=== PATIENT | female | born 1975 | race Caucasian/White ===

== ENCOUNTER 2020-11-11 19:27 | Emergency (ER) | payer SELFPAY ==
[2020-11-11 19:29] VITALS: BP 158/101; PULSE 120; RESP 18; TEMP 36.6; O2SAT 100; BMI 20.7
[2020-11-11 20:00] VITALS: BP 154/99; PULSE 112; RESP 17; O2SAT 98
--- NOTE | 2020-11-11 20:05 | [facility].EDGENADL ---
ED Disposition Clinical Impression: Crohn's colitis Qualifiers: Digestive disease complication type: without complication Qualified Code(s): K50.10 - Crohn's disease of large intestine without complications Disposition: Home, Self-Care Condition on Discharge: Good Instructions: DI for Diarrhea and Traveler's Diarrhea -- Adult, DI for Diarrhea and Traveler's Diarrhea -- Child, DI for Nausea -- Adult, DI for Nausea -- Child Additional Instructions: Continue taking Lomotil and Bentyl as prescribed. Follow a clear liquid diet over the next several days. Please call your PCP tomorrow for possible initiation of oral steroids. Immediately return if intractable nausea/vomiting, recurrent pain, abdominal distention, fever/chills, or other new concerning symptoms. Referrals: PCP,No [Primary Care Provider] - - Critical Care Critical Care Time: No Attestation: On , the high probability of a clinically significant, sudden or life threatening deterioration of the following system(s) required my full and direct attention, intervention and personal management. The time I documented below is in addition to time spent performing reported procedures but includes the following listed in this critical care notation. Medical Decision Making - Medical Records Medical records reviewed: Yes: I reviewed the patient's medical records. - George Inquiry Pt receiving controlled substance: Yes George was queried for this patient: No Reason not queried -: Emergent pt cond-no time Risks and benefits of using a controlled substance: were discussed with pt by me Vital Signs: 11/11/20 19:29 11/11/20 20:00 11/11/20 20:30 Temperature 97.9 F Temperature Source Oral Pulse Rate [Left Radial] 120 H 112 H 107 H Respiratory Rate 18 17 Blood Pressure [Right Arm] 158/101 H 154/99 H 144/82 H Blood Pressure Mean [Right Arm] 120 117 102 Blood Pressure Source [Right Arm] Automatic Cuff Automatic Cuff Automatic Cuff Blood Pressure Position [Right Arm] Supine Supine Supine 02 Sat by Pulse Oximetry 100 98 97 Oxygen Delivery Method Room Air Room Air Room Air - Lab Data Lab Results 11/11/20 19:46: Urine Color Yellow, Urine Appearance Clear, Urine pH 6.0, Ur Specific Anderson <= 1.005, Urine Protein Negative, Urine Glucose (UA) Negative, Urine Ketones Negative, Urine Blood Negative, Urine Nitrate Negative, Urine Bilirubin Negative, Urine Urobilinogen 0.2, Ur Leukocyte Esterase 1+ A, Urine WBC 5-10, Ur Squamous Epith Cells 3-5, Urine Bacteria 1+, Urine Mucus 1+ 11/11/20 19:46: Urine HCG, Qual Negative 11/11/20 20:10: WBC 6.6, RBC 4.48, Hgb 15.1, Hct 42.7, MCV 95.3, MCH 33.7 H, MCHC 35.4, RDW 13.4, Plt Count 281, MPV 7.5, Neut % (Auto) 67.1, Lymph % (Auto) 26.0, [place] % (Auto) 5.3, Eos % (Auto) 1.2, Baso % (Auto) 0.4, Neut # (Auto) 4.4, Lymph # (Auto) 1.7, [place] # (Auto) 0.4, Eos # (Auto) 0.1, Baso # (Auto) 0.0 11/11/20 20:10: Sodium 141, Potassium 4.1, Chloride 105, Carbon Dioxide 27, Anion Gap 13.1, BUN 6 L, Creatinine 0.90, Estimated Creat Clear 70, Estimated GFR 67, Est GFR ( Amer) 82, Glucose 114 H, Calcium 10.7 H, Magnesium 1.5 L, Total Bilirubin 0.4, AST 40 H, ALT 41, Alkaline Phosphatase 113, C-Reactive Protein 0.7, Total Protein 8.6 H, Albumin 5.0, Globulin 3.6 H, Albumin/Globulin Ratio 1.4, Lipase 227 Result diagrams: 11/11/20 20:10 11/11/20 20:10 Orders (Tests/Meds): ED MEDICATIONS Generic Name Dose Route Start Last Admin Trade Name Freq PRN Reason Stop Dose Admin Lactated Ringer's 1,000 mls @ 999 mls/hr 11/11/20 20:15 11/11/20 20:14 Lactated Ringer's 1000 Ml Bag IV 11/11/20 21:15 999 mls/hr .[id number] DANYELL Administration Discontinued Medications Generic Name Dose Route Start Last Admin Trade Name Freq PRN Reason Stop Dose Admin Iopamidol 75 ml 11/11/20 21:16 11/11/20 21:17 Iopamidol-370 (76%);100ml Bottle IV 11/11/20 21:17 75 ml ONCE ONE Administration Morphine Sulfate 4 mg 11/11/20 20:10 11/11/20 20:14 M
--- NOTE | 2020-11-11 20:10 | CT_ITS ---
PROCEDURE: CT ABDOMEN PELVIS W CON CLINICAL INDICATION: abd pain w/vomiting h/o crohn's COMPARISON: No exams were available for comparison TECHNIQUE: IV Contrast: 75ML Isovue 370 Oral Contrast None Axial images obtained with sagittal and coronal reformats. All CT scans at the facility use one or more dose reduction, viz: automated exposure control, ma/kV adjustment per patient size (including targeted exams where dose is matched to indication, i.e. head), or iterative reconstruction technique. FINDINGS: LOWER THORAX: No acute finding ABDOMEN & PELVIS: There has been a prior cholecystectomy with biliary ectasia. No focal liver lesion is evident. The spleen, adrenal glands, and kidneys have an unremarkable appearance. There is mild prominence of the pancreatic duct in the head of the pancreas. This is of questionable clinical significance. There is a tiny umbilical hernia containing fat. The appendix is not clearly delineated. No evidence of appendicitis. Surgical clips are present in the right lower quadrant. There are fluid filled minimally distended distal ileal loops as well as air-fluid levels within the colon which is nondistended. Minimal enhancement of the wall of the ascending and transverse colon. There is prominence of the left periuterine veins which may be seen with pelvic congestion syndrome. No acute bony findings. IMPRESSION: 1. Enterocolitis suspected. 2. Prominence of the left periuterine veins which may be seen with pelvic congestion syndrome. 3. Prior cholecystectomy with biliary ectasia and mild prominence of the pancreatic duct. MRCP may better evaluate if clinically desired. Dictated by: Jin Grey MD 11/12/2020 07:34 Jin Grey MD in [place] 11/12/2020 07:34
[2020-11-11 20:15] LABS: Microscopic, Urine URINE MICROSCOPIC (MICROSCOPIC)
[2020-11-11 20:20] LABS: Basophils % 0.4 % (0.1-2.0); Eosinophils # 0.1 K/mm3 (0.0-0.4); Eosinophils % 1.2 % (0.1-12.0); Hematocrit 42.7 % (37.0-47.0); Hemoglobin 15.1 g/dL (12.2-16.2); Lymphocytes # 1.7 K/mm3 (0.7-4.5); Mean Corpuscular HGB Conc 35.4 g/dL (31.8-35.4); Mean Corpuscular Hemoglobin 33.7 pg (27.0-31.2); Mean Corpuscular Volume 95.3 fl (81-99); Mean Platelet Volume 7.5 fl (7.4-10.4); Monocytes # 0.4 K/mm3 (0.1-1.0); Monocytes % 5.3 % (1.7-9.3); Neutrophils # 4.4 K/mm3 (1.8-7.8); Neutrophils % 67.1 % (37.0-80.0); Platelet Count 281 K/mm3 (142-424); Red Blood Count 4.48 M/mm3 (4.20-5.40); Red Cell Distribution Width 13.4 % (11.5-17.5); White Blood Count 6.6 K/mm3 (4.8-10.8)
[2020-11-11 20:23] LABS: Appearance,Urine CLEAR (Clear); Bilirubin,Urine Negative (Negative); Blood, Urine Negative (Negative); Color,Urine YELLOW (Yellow); Glucose,Urine (UA) Negative (Negative); Ketones,Urine Negative (Negative); Leukocyte Esterase,Urine 1+ (Negative); Nitrate,Urine Negative (Negative); Protein,Urine Negative (Negative); Specific Gravity, Urine <= 1.005 (1.005-1.030); Urobilinogen,Urine 0.2 EU/dl (0.2)
[2020-11-11 20:25] LABS: Chloride 105 mmol/L (98-107); Sodium 141 mmol/L (136-145)
[2020-11-11 20:26] LABS: Potassium 4.1 mmoL/L (3.5-5.1)
[2020-11-11 20:27] LABS: Urine Pregnancy, HCG Qual. Negative (Negative)
[2020-11-11 20:28] LABS: Alanine Aminotransferase 41 U/L (12-78); Albumin/Globulin Ratio 1.4 (1.1-1.8); Alkaline Phosphatase 113 U/L (38-126); Anion Gap 13.1 mEq/L (5-15); Aspartate Amino Transferase 40 U/L (14-36); Bilirubin,Total 0.4 mg/dl (0.2-1.3); Blood Urea Nitrogen 6 mg/dl (7-17); Calcium 10.7 mg/dl (8.4-10.2); Carbon Dioxide 27 mmol/L (22.0-30.0); Creatinine Clearance Estimated 70 mL/min (50-200); Estimated Glomerular Filt Rate 67 ml/min (>60); GFR (African American) 82 ML/MIN (>60); Globulin 3.6 g/dL (1.3-3.2); Glucose 114 mg/dl (74-100); Lipase 227 U/L (23-300); Total Protein,Serum 8.6 g/dl (6.3-8.2)
[2020-11-11 20:29] LABS: Magnesium 1.5 mg/dl (1.6-2.3)
[2020-11-11 20:30] VITALS: BP 144/82; PULSE 107; O2SAT 97
[2020-11-11 20:35] LABS: C-Reactive Protein 0.7 mg/L (0-4)
[2020-11-11 20:35] LABS: Bacteria,Urine 1+ /lpf; Mucus,Urine 1+ /lpf
[2020-11-11 22:39] VITALS: BP 138/63; PULSE 73; RESP 16; TEMP 37.1; O2SAT 98
== END 2020-11-11 22:41 | disposition home or self-care (01) ==
PROVIDERS: Emergency Medicine; Emergency Provider Emergency Medicine
DX: K50.10 Crohn's disease of large intestine without complications (principal)
CPT/HCPCS: 74177; 80053; 81001; 81025; 83690; 83735; 85025; 86140; 87086; 96365; 96375; 96376; 99284; J2405; Q9967